=== PATIENT | male | born 1980 | race Caucasian/White ===

== ENCOUNTER 2018-03-18 19:27 | Emergency (ER) | payer BC ==
[2018-03-18] MEDS: DIPHENHYDRAMINE 50 MG CAP PO (19:46)
[2018-03-18] MEDS: predniSONE 20 MG TAB PO (19:47)
[2018-03-18] MEDS: FAMOTIDINE 20 MG TAB PO (19:47)
[2018-03-18] MEDS: EPINEPHrine 1 MG INJ IM (19:47)
== END 2018-03-18 20:33 | disposition home or self-care (01) ==
LOC: E/R 19:27
DX: L50.9 Urticaria, unspecified (principal)
CPT/HCPCS: 96372; 99291-25